=== PATIENT | female | born 1960 | race Caucasian/White ===

== ENCOUNTER → 2017-01-17 | Outpatient (CLI) | payer BC ==
[~2017-01-17] MED LIST: CALCIUM1 CAP PO; ESCITALOPRAM; MULTIVITAMIN FO1 CAP PO; NASOCORT; PERCOCET 325 MG1 TA2 PO
== END ==
LOC: MC.RAD 14:09
DX: Z12.31 Encounter for screening mammogram for malignant neoplasm of breast (principal)